=== PATIENT | female | born 1995 | race Hispanic/Latino ===

== ENCOUNTER 2021-11-05 16:16 | Inpatient (IN) | payer OTHER, MEDICAID ==
[~2021-11-05] VITALS: Ht 149.9 cm; Wt 42.5 kg
[2021-11-05 16:54] LABS: BASOPHILS % (AUTO) 0.3 % (0.0-5.0); EOSINOPHILS % (AUTO) 0.7 % (0.0-8.0); HEMATOCRIT 36.4 % (36-48); LYMPHOCYTES % (AUTO) 19.4 % (21.0-51.0); MEAN CORPUSCULAR HEMOGLOBIN 29.6 pg (27.0-33.0); MEAN CORPUSCULAR HGB CONC 34.6 g/dL (32.0-36.0); MEAN CORPUSCULAR VOLUME 85.4 fL (79-99); MONOCYTES % (AUTO) 5.3 % (3.0-13.0); NEUTROPHILS % (AUTO) 74.1 % (40.0-77.0); PLATELET COUNT (AUTO) 214 K/uL (130-400); RED BLOOD CELL COUNT(AUTO) 4.26 MIL/uL (4.00-5.50); RED CELL DISTRIBUTION WIDTH 12.8 % (11.0-15.5); WHITE BLOOD COUNT (AUTO) 8.9 K/uL (4.8-10.8)
[2021-11-05 16:55] LABS: APPEARANCE,URINE CLEAR (CLEAR); BILIRUBIN,URINE NEGATIVE (NEGATIVE); COLOR,URINE YELLOW (YELLOW); GLUCOSE, URINE (UA) NEGATIVE (NEGATIVE); KETONES,URINE NEGATIVE (NEGATIVE); LEUKOCYTE ESTERASE ,URINE NEGATIVE (NEGATIVE); NITRATE,URINE NEGATIVE (NEGATIVE); OCCULT BLOOD,URINE NEGATIVE (NEGATIVE); PROTEIN,URINE NEGATIVE (NEGATIVE)
[2021-11-05 16:58] LABS: HCG,QUALITATIVE URINE NEGATIVE (NEGATIVE)
[2021-11-05] MEDS ORDERED: DICYCLOMINE HCL 10 MG/5 ML ML PO ONE (17:00)
[2021-11-05] MEDS ORDERED: LIDOCAINE HCL 2% VISCOUS 15 ML UDCUP PO ONE (17:00)
[2021-11-05] MEDS ORDERED: ONDANSETRON 4MG INJ IVP ONE (17:00)
[2021-11-05] MEDS ORDERED: FAMOTIDINE 20MG VIAL IV ONE (17:00)
[2021-11-05] MEDS ORDERED: MAG/ALUM/SIMETH 30 ML UDCUP PO ONE (17:00)
[2021-11-05 17:02] LABS: CREATININE 0.7 mg/dL (0.5-1.5); POTASSIUM 3.5 mmol/L (3.5-5.1)
[2021-11-05 17:06] LABS: ALBUMIN 3.9 g/dL (3.5-5.0)
[2021-11-05] MEDS ORDERED: MORPHINE 2 MG SYG IVP ONE (19:00)
[2021-11-05] MEDS ORDERED: HYDROMORPHONE 0.5 MG SYG (0.5MG/0.5ML) IV PRN (19:30)
[2021-11-05] MEDS ORDERED: ACETAMINOPHEN 325 MG TAB PO PRN ×2 (19:30)
[2021-11-05 19:34] LABS: INR 0.99 (0.85-1.15); PROTHROMBIN TIME 10.8 SEC (9.6-11.6)
[2021-11-05 19:35] LABS: PARTIAL THROMBOPLASTIN TIME 28.9 SEC (26.3-35.5)
[2021-11-05] MEDS ORDERED: ZOSYN 3.375GM+NS 50ML 50 ML ONE (19:46)
[2021-11-05] MEDS: 0.9%NACL 1000ML 1,000 ML IV SCH (19:51)
[2021-11-05] MEDS: FAMOTIDINE 20MG VIAL IV SCH (19:52)
[2021-11-05] MEDS: ZOSYN 3.375GM+NS 50ML 50 ML IV SCH (19:52)
[2021-11-05] MEDS: ONDANSETRON 4MG INJ IV PRN (23:03)
[2021-11-05 23:45] VITALS: BP 106/67
[2021-11-06] VITALS (24 sets, daily range): BP systolic 101–140; BP diastolic 62–85
[2021-11-06] MEDS: ZOSYN 3.375GM+NS 50ML 50 ML IV SCH ×3 (03:03→20:10)
[2021-11-06 04:31] LABS: BASOPHILS % (AUTO) 0.4 % (0.0-5.0); EOSINOPHILS % (AUTO) 0.3 % (0.0-8.0); HEMATOCRIT 36.4 % (36-48); LYMPHOCYTES % (AUTO) 17.5 % (21.0-51.0); MEAN CORPUSCULAR HEMOGLOBIN 29.4 pg (27.0-33.0); MEAN CORPUSCULAR HGB CONC 33.8 g/dL (32.0-36.0); MEAN CORPUSCULAR VOLUME 86.9 fL (79-99); NEUTROPHILS % (AUTO) 77.5 % (40.0-77.0); PLATELET COUNT (AUTO) 198 K/uL (130-400); RED BLOOD CELL COUNT(AUTO) 4.19 MIL/uL (4.00-5.50); RED CELL DISTRIBUTION WIDTH 13.1 % (11.0-15.5); WHITE BLOOD COUNT (AUTO) 9.1 K/uL (4.8-10.8)
[2021-11-06] MEDS: 0.9%NACL 1000ML 1,000 ML IV SCH ×2 (04:45→15:05)
[2021-11-06 05:00] LABS: ALBUMIN 3.4 g/dL (3.5-5.0); CREATININE 0.7 mg/dL (0.5-1.5); POTASSIUM 3.7 mmol/L (3.5-5.1); TOTAL PROTEIN, SERUM 7.1 g/dL (6.0-8.3)
[2021-11-06 05:39] LABS: ERYTHROCYTE SEDIMENTATION RATE 9 MM/HR (0-20)
[2021-11-06] MEDS: MORPHINE 2 MG SYG IV PRN ×3 (08:21→20:17)
[2021-11-06] MEDS: FAMOTIDINE 20MG VIAL IV SCH ×2 (09:19→20:10)
[2021-11-06] MEDS ORDERED: BUPIVACAINE/PF 0.5% 10ML VIAL ONE (12:53)
[2021-11-06] MEDS ORDERED: MIDAZOLAM HCL 1 MG/ML 2ML VIAL ONE (13:17)
[2021-11-06] MEDS ORDERED: DEXAMETHASONE SOD PHOSPHATE 10MG/ML 1ML VIAL ONE (13:20)
[2021-11-06] MEDS ORDERED: SUCCINYLCHOLINE CHLORIDE 20 MG/ML 10 ML VIAL ONE (13:20)
[2021-11-06] MEDS ORDERED: ONDANSETRON 4MG INJ ONE (13:20)
[2021-11-06] MEDS ORDERED: ROCURONIUM 10MG/1ML SYR 10 MG/ML ML ONE (13:20)
[2021-11-06] MEDS ORDERED: PROPOFOL 10 MG/ML 20ML VIAL IV ONE (13:20)
[2021-11-06] MEDS ORDERED: FENTANYL CITRATE PF 50 MCG/1 ML 2ML VIAL ONE (13:23)
[2021-11-06] MEDS ORDERED: NEOSTIGMINE 5MG/5ML SYR IV ONE (14:02)
[2021-11-06] MEDS ORDERED: GLYCOPYRROLATE 1 MG/5 ML SYRINGE ONE (14:02)
[2021-11-06] MEDS ORDERED: MEPERIDINE-PF 25 MG/ML SYG ONE (14:41)
[2021-11-06] MEDS: KETOROLAC 15MG/ML VIAL (15MG/ML) IM PRN (18:51)
[2021-11-07] MEDS: MORPHINE 2 MG SYG IV PRN ×2 (00:02→04:18)
[2021-11-07] MEDS: 0.9%NACL 1000ML 1,000 ML IV SCH ×2 (01:30→11:30)
[2021-11-07 04:00] VITALS: BP 104/56
[2021-11-07] MEDS: ZOSYN 3.375GM+NS 50ML 50 ML IV SCH ×2 (04:18→12:34)
[2021-11-07 05:20] LABS: BASOPHILS % (AUTO) 0.1 % (0.0-5.0); HEMATOCRIT 34.1 % (36-48); LYMPHOCYTES % (AUTO) 15.3 % (21.0-51.0); MEAN CORPUSCULAR HEMOGLOBIN 29.4 pg (27.0-33.0); MEAN CORPUSCULAR VOLUME 86.3 fL (79-99); MONOCYTES % (AUTO) 5.9 % (3.0-13.0); NEUTROPHILS % (AUTO) 78.4 % (40.0-77.0); PLATELET COUNT (AUTO) 214 K/uL (130-400); RED BLOOD CELL COUNT(AUTO) 3.95 MIL/uL (4.00-5.50); RED CELL DISTRIBUTION WIDTH 12.6 % (11.0-15.5); WHITE BLOOD COUNT (AUTO) 6.8 K/uL (4.8-10.8)
[2021-11-07 05:40] LABS: ALBUMIN 3.2 g/dL (3.5-5.0); CREATININE 0.6 mg/dL (0.5-1.5); POTASSIUM 3.8 mmol/L (3.5-5.1); TOTAL PROTEIN, SERUM 6.9 g/dL (6.0-8.3)
[2021-11-07 07:38] VITALS: BP 128/85
[2021-11-07] MEDS: FAMOTIDINE 20MG VIAL IV SCH (08:34)
[2021-11-07] MEDS: KETOROLAC 15MG/ML VIAL (15MG/ML) IM PRN (08:34)
[2021-11-07] MEDS: ONDANSETRON 4MG INJ IV PRN (08:42)
[2021-11-07 10:58] VITALS: BP 132/92
[2021-11-07] MEDS ORDERED: AMOX-426 PO (11:51)
[2021-11-07] MEDS ORDERED: TRAMADOL HCL 50 MG TABLET PO SCH (12:30)
== END 2021-11-07 15:00 | disposition home or self-care (01) | DRG 419 ==
LOC: EDH 16:16 → EDHIP 19:08 → 4AH 23:53
PROVIDERS: ADMIT Hospitalist; ATTEND Hospitalist
PROC: 0FT44ZZ Resection of Gallbladder, Percutaneous Endoscopic Approach (ICD-10-PCS; principal; 2021-11-06 13:22)
DX: K80.00 Calculus of gallbladder with acute cholecystitis without obstruction (principal); Z20.822 Contact with and (suspected) exposure to COVID-19; K82.8 Other specified diseases of gallbladder
CPT/HCPCS: 36415; 76705; 80053; 81003; 81025; 83690; 85025; 85610; 85651; 85730; 87635; G0378; J0330; J1100; J1170; J1885; J2175; J2250; J2405; J2543; J2704; J2710; J3010; J3490; J7030